=== PATIENT | male | born 1965 | race Caucasian/White ===

== ENCOUNTER → 2017-09-16 | Outpatient (CLI) | payer BC | LOC: GMAB 10:45 | PROVIDERS: ATTEND Family Medicine | DX: Z00.01 Encounter for general adult medical examination with abnormal findings (principal) ==

== ENCOUNTER → 2017-09-22 | Outpatient (CLI) | payer BC ==
--- NOTE | 2017-09-23 10:21 | RAD ---
EXAM DESCRIPTION: UGI: Rad-Fluoroscopy. CLINICAL HISTORY: GERD,REFLUX. Screening for bariatric surgery. 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 The patient swallowed barium pill with water. The patient swallowed gas-producing granules, water, and heavy density barium under fluoroscopic visualization. The images were obtained with the patient upright and horizontal. Patient drank medium density barium through a straw in the semi-prone position. 79 fluoroscopic cine loop images. 9 static fluoroscopic images. Total fluoroscopy time was 2.3 minutes. DAP: 233.91 mGy. FINDINGS: Nonspecific bowel gas pattern on the marine engine machinist apprentice radiograph. The patient swallowed the barium pill, there was slight delay at the distal esophagus before the pill passed into the stomach. The swallowing mechanism was grossly normal with no laryngeal penetration or aspiration. No mass effect on the esophagus. Small sliding hiatal hernia. Mild to moderate gastroesophageal reflux with movement in the horizontal position. Was not increased with coughing or Valsalva maneuver. Stomach was well distended with gas and contrast material with no intrinsic lesions or mass effect. Duodenum was well distended with gas and contrast material with no intrinsic lesions or mass effect. IMPRESSION: 1. No gross abnormalities of the swallowing mechanism. 2. Small sliding hiatal hernia. Mild to moderate gastroesophageal reflux almost to the level of the tracheal isaac. No mass effect on the esophagus. 3. Stomach otherwise unremarkable. Duodenum is negative. Electronically signed by: Landry Rao MD 09/23/2017 10:20 AM CDT
== END ==
LOC: RAD 08:01
PROVIDERS: ATTEND Surgery
DX: Z13.810 Encounter for screening for upper gastrointestinal disorder (principal)

== ENCOUNTER → 2018-07-08 | Outpatient (CLI) | payer BC | LOC: LAB.O 08:50 | PROVIDERS: ATTEND Surgery | DX: R12 Heartburn (principal); E56.9 Vitamin deficiency, unspecified; R53.81 Other malaise; R53.83 Other fatigue; R06.02 Shortness of breath; R60.9 Edema, unspecified; K64.9 Unspecified hemorrhoids; E78.00 Pure hypercholesterolemia, unspecified; I10 Essential (primary) hypertension; E78.1 Pure hyperglyceridemia; G43.909 Migraine, unspecified, not intractable, without status migrainosus; G47.33 Obstructive sleep apnea (adult) (pediatric); G54.9 Nerve root and plexus disorder, unspecified; I50.9 Heart failure, unspecified; M25.50 Pain in unspecified joint ==

== ENCOUNTER → 2018-07-21 | Outpatient (CLI) | payer BC ==
--- NOTE | 2018-07-21 15:16 | MRI ---
EXAM DESCRIPTION: Lumbar Spine w/o Contrast : Magnetic Resonance Imaging. CLINICAL HISTORY: LOW BACK PAIN COMPARISON: LUMBAR TECHNIQUE: Multiplanar, multiple standard sequences, non contrast MRI, lumbar spine. FINDINGS: L5-S1: identified on axial T2 series 501, image 3. Disc space maintained with normal signal in the disc. Bony canal and narrowing due to shortened pedicles. AP canal diameter 11 mm. Moderate left foraminal narrowing with borderline right foraminal stenosis. Right facet joint arthrosis and hypertrophy of the flavum ligament. L4-L5: Disc desiccation and minimal disc space loss. Posterior midline 5 mm focal bulge or small protrusion abutting the thecal sac. Bilateral shortened pedicles. AP canal diameter 9 mm. Bilateral moderate foraminal narrowing. L3-L4: Minimal disc desiccation with disc space maintained. Posterior midline hyperintense T2 signal with minimal flavum ligament hypertrophy and bilaterally shortened pedicles. Facet joints are unremarkable. AP canal diameter 11 mm. Bilateral moderate foraminal narrowing. L2-L3: Minimal disc desiccation with anterior bulging and endplate ridging. Tiny posterior disc bulge. Bilateral flavum ligament hypertrophy. Bilateral pedicle shortening. AP canal diameter 9 mm. Bilateral mild foraminal narrowing. L1-L2: Disc space maintained. Minimal disc desiccation. Posterior midline bulge abutting the thecal sac. Flavum ligament hypertrophy. Bilateral pedicle shortening. AP canal diameter 8 mm. T12-L1: Posterior elements unremarkable. Bilateral pedicles shortened. AP canal diameter 12 mm. Conus terminates just above the disc space. Bilateral foramina are patent. No significant scoliosis. Paravertebral soft tissues unremarkable.. Normal marrow signal in the remaining vertebral bodies and the posterior elements. Vertebral bodies are not compressed at any level. IMPRESSION: 1. Shortened pedicles at multiple levels resulting in canal narrowing or stenosis and foraminal narrowing. 2. Borderline right foraminal stenosis at L5-S1 with possible compromise right L5 nerve. 3. Posterior midline 5 mm focal bulge or small protrusion L4-5 disc. Mild central canal stenosis with moderate bilateral foraminal narrowing. 4. Small annular fissure posterior L3-4. Moderate canal narrowing and bilateral foraminal narrowing. Borderline to mild central canal stenosis at L2-L3 and L1-L2. Electronically signed by: Landry Rao MD 07/21/2018 3:13 PM FUEL HAND[employer]ER
== END ==
LOC: MRI 09:03
PROVIDERS: ATTEND Family Medicine
DX: M48.07 Spinal stenosis, lumbosacral region (principal); M51.86 Other intervertebral disc disorders, lumbar region

== ENCOUNTER → 2018-08-31 | Outpatient (CLI) | payer BC ==
--- NOTE | 2018-09-01 10:35 | MRI ---
EXAM DESCRIPTION: Thoracic Spine w/o Contrast: Magnetic Resonance Imaging. CLINICAL HISTORY: THORACIC RADICULOPATHY COMPARISON: CT scan of the chest with contrast 10/13/2013. MRI scan lumbar spine 07/21/2018. Radiographs Thoracic spine 07/19/2013. TECHNIQUE: Multiplanar, multiple standard sequences, non contrast MRI, thoracic spine. FINDINGS: Circumscribed lesion in the posterior T10 vertebral body in the midline extending from the superior endplate to the inferior endplate similar signal mostly hyperintense T1 and T2 sequences with central hyperintensity on STIR sequence. No surrounding marrow edema and no involvement of the pedicles. Most likely a hemangioma. Smaller hemangiomas in the T5 vertebral body T9-T10: Minimal desiccation of the disc. Anterior Modic type II endplate reactive changes minimal. Trace posterior bulge of the disc. Canal narrowing. Bilateral neural foramina are patent. Facet joints are negative. T10-T11: Disc desiccation minimal anterior bulging and ridging. Posterior disc space narrowing. Exterior tiny bulge abutting the cord to the right of midline. Mild canal narrowing. No nerve root impingement. Bilateral foramina are patent. T4-T5. Minimal disc desiccation with disc space maintained. Disc and facet joints unremarkable. No canal or foraminal stenosis. Other discs with normal signal. Disc spaces are preserved. Canal and foramina are patent. No scoliosis. Facet joints are unremarkable. Conus terminates just above the T12-L1 disc space.. Cord with normal signal, no compression. Paravertebral soft tissues are unremarkable. Otherwise normal marrow signal in the remaining vertebral bodies and the posterior elements. Vertebral bodies are not compressed at any level. IMPRESSION: 1. Almost 2 cm hemangioma in the posterior T10 vertebral body with no complications. Hemangiomas also in the T5 vertebral body. 2. Minimal disc and endplate abnormalities as noted. No significant canal or foraminal stenosis. No significant arthrosis of the facet joints.. Electronically signed by: Landry Rao MD 09/01/2018 10:31 AM CDT
== END ==
LOC: MRI 09:10
PROVIDERS: ATTEND Physician Assistant
DX: M47.816 Spondylosis without myelopathy or radiculopathy, lumbar region (principal); M54.14 Radiculopathy, thoracic region; D18.09 Hemangioma of other sites

== ENCOUNTER → 2018-10-08 | Outpatient (CLI) | payer BC | LOC: GMAM 10:53 | PROVIDERS: ATTEND Family Medicine | DX: R21 Rash and other nonspecific skin eruption (principal) ==

== ENCOUNTER → 2019-07-14 | Outpatient (CLI) | payer BC, OTHER ==
--- NOTE | 2019-07-14 21:16 | US ---
EXAM DESCRIPTION: Abdomen,Complete: Ultrasound. CLINICAL HISTORY: 53 years MaleGENERALIZED ABDOMINAL PAIN COMPARISON: None Available. TECHNIQUE: Transabdominal scanning: grayscale and Doppler modes. FINDINGS: Gallbladder: Normal size and echogenicity with no intraluminal stones or sludge. Wall thickness 2.4 mm with no fluid. Common bile duct: 4.5 mm normal caliber. Liver: Diffuse increased echogenicity. Long axis right lobe 16.7 cm. Hepatopedal flow in the portal vein which is normal caliber. Normal caliber of the ducts. Smooth capsule with no ascites. Pancreas: Normal echogenicity and size. Duct not seen. Abdominal aorta: Normal caliber from the proximal segment to the distal bifurcation. IVC: visualized; normal caliber. Spleen normal echogenicity; long axis measurement is 11.4 cm. Right kidney: 10 cm long axis. Normal cortical thickness and echogenicity. 3.7 x 3.4 cm cyst. No echogenic stones or hydronephrosis. Left kidney: 9.9 cm long axis. Normal cortical thickness and echogenicity. No echogenic stones and no hydronephrosis. IMPRESSION: 1. Fatty liver upper normal limits in size. Otherwise unremarkable. No ascites. 2. Right kidney with no 0.7 cm cyst, otherwise negative. 3. Remaining abdominal organs are sonographically normal. Stomach was not evaluated. Electronically signed by: Landry Rao MD 07/14/2019 9:14 PM DISPLAY MAKER
== END ==
LOC: US 07:56
PROVIDERS: ATTEND Family Medicine
DX: K76.0 Fatty (change of) liver, not elsewhere classified (principal); N28.1 Cyst of kidney, acquired